=== PATIENT | male | born 1990 | race Caucasian/White ===

== ENCOUNTER 2018-10-06 21:33 | Emergency (ER) | payer MEDICAID ==
[~2018-10-06] VITALS: Ht 157.5 cm; Wt 59.0 kg
[2018-10-06 21:45] VITALS: BP 128/80
--- NOTE | 2018-10-06 21:47 | NUR ---
PT AMBULATED TO BED 12 WITH VSS.
--- NOTE | 2018-10-06 21:56 | NUR ---
PT PRESENTS TO ED WITH C/O L SHOULDER PAIN. DENIES INJURY. NO OBVIOUS INJURY OR DEFORMITY NOTED. ROM PRESENT. PT PLACED INTO BED, PENDING MD BARRIGA.
--- NOTE | 2018-10-06 22:04 | NUR ---
XRAY AT BEDSIDE.
[2018-10-06] MEDS ORDERED: KETOROLAC 60 MG/2 ML VIAL IM ONE (22:10)
[2018-10-06 23:03] VITALS: BP 119/78
== END 2018-10-06 23:03 | disposition home or self-care (01) ==
LOC: MED 21:33
DX: M25.512 Pain in left shoulder (principal)
CPT/HCPCS: 73030; 93005; 96372; 99283; J1885; Q0092

== ENCOUNTER 2019-06-17 01:02 | Emergency (ER) | payer SELFPAY ==
[~2019-06-17] VITALS: Ht 157.5 cm; Wt 63.5 kg
[2019-06-17 01:20] VITALS: BP 115/66
[2019-06-17] MEDS ORDERED: DIAZEPAM 5 MG TAB PO ONE (03:25)
[2019-06-17 03:46] VITALS: BP 123/70
== END 2019-06-17 03:46 | disposition home or self-care (01) ==
LOC: MED 01:02
DX: R20.2 Paresthesia of skin (principal)
CPT/HCPCS: 93005; 99283

== ENCOUNTER 2019-06-25 22:05 | Emergency (ER) | payer SELFPAY ==
[~2019-06-25] VITALS: Ht 157.5 cm; Wt 66.3 kg
[2019-06-25 22:10] VITALS: BP 117/79
--- NOTE | 2019-06-25 22:52 | NUR ---
29 Y/O MALE C/O 03/26 INTERMITTENT PRESSURE CHEST PAIN X 1 HOUR. STARTED WHILE LYING DOWN WATCHING TV. DENIES SOB. -NAUSEA -VOMITING +MILD DIZZINESS. RADIATES TO THE LEFT SIDE OF THE CHEST. GIRLFRIEND STATES HE WAS SHAKING EARLIER. VSS. PATIENT IS IN NO DISTRESS AT THIS TIME. ERMD MADE AWARE. PLACED ON MONITOR. PMH-- DENIES RX-- DENIES
--- NOTE | 2019-06-25 23:52 | NUR ---
Dr. Mae examining patient.
[2019-06-26] MEDS ORDERED: KETOROLAC 30 MG/ML VIAL IM ONE
[2019-06-26] MEDS ORDERED: ACETAMINOPHEN 325 MG TAB PO ONE (00:15)
[2019-06-26] MEDS ORDERED: ASPIRIN 325 MG TAB PO ONE (00:15)
--- NOTE | 2019-06-26 00:16 | NUR ---
PATIENT REFUSED TORADOL. NOTIFIED
[2019-06-26 02:35] VITALS: BP 106/70
--- NOTE | 2019-06-26 02:35 | NUR ---
DISCHARGE PAPERS GIVEN TO PT. NO C/O PAIN. 0/10 PAIN. NO CP OR OTHER DISTRESS NOTED. VSS. ISNTRUCTED TO F/U WITH PCP AND WHEN TO RETURN TO ER. PT VERBALLIZED UNDERSTANDING OF DC INSTRUCTIONS. ALL QEUSTIONS ANSWERED.
== END 2019-06-26 02:35 | disposition home or self-care (01) ==
LOC: MED 22:05
DX: R07.89 Other chest pain (principal); H53.8 Other visual disturbances
CPT/HCPCS: 71045; 93005; 99283; Q0092; J1885

== ENCOUNTER 2022-12-27 23:14 | Emergency (ER) | payer SELFPAY ==
[~2022-12-27] VITALS: Ht 149.9 cm; Wt 59.9 kg
[2022-12-27 23:20] VITALS: BP 110/76
--- NOTE | 2022-12-28 03:04 | NUR ---
Dr. Monroe examining patient.
[2022-12-28] MEDS ORDERED: ACET-10509 PO (04:15)
[2022-12-28 04:36] VITALS: BP 110/76
--- NOTE | 2022-12-28 04:37 | NUR ---
Patient discharged with v/s stable. Written and verbal after care instructions given and explained. New rx tylenol. Patient verbalized understanding. All questions addressed prior to discharge. Advised to follow up with PMD.
== END 2022-12-28 04:37 | disposition home or self-care (01) ==
LOC: MED 23:14
DX: R07.89 Other chest pain (principal); Z79.899 Other long term (current) drug therapy
CPT/HCPCS: 71045; 99283; Q0092

== ENCOUNTER 2023-11-22 09:06 | Emergency (ER) | payer SELFPAY ==
[~2023-11-22] VITALS: Ht 160 cm; Wt 66.7 kg
[~2023-11-22 09:06] MED LIST: ACET-10509 PO
[2023-11-22 09:16] VITALS: BP 112/74; PULSE 76; RESP 14; TEMP 97.2; O2SAT 98
[2023-11-22 09:25] VITALS: TEMP 98.3
[2023-11-22 09:54] LABS: BASOPHILS % (AUTO) 0.7 % (0.0-2.0); EOSINOPHILS % (AUTO) 0.7 % (0.0-4.0); HEMATOCRIT 43.4 % (36-52); HEMOGLOBIN 14.8 g/dL (12.0-18.0); LYMPHOCYTES # (AUTO) 1.4 K/uL (2.0-11.5); LYMPHOCYTES % (AUTO) 25.6 % (20.5-51.1); MEAN CORPUSCULAR HEMOGLOBIN 31 pg (27-31); MEAN CORPUSCULAR HGB CONC 34 g/dL (33-37); MEAN CORPUSCULAR VOLUME 89.9 fL (80-94); MONOCYTES # (AUTO) 0.3 K/uL (0.8-1.0); MONOCYTES % (AUTO) 6.1 % (1.7-9.3); NEUTROPHILS # (AUTO) 3.6 K/uL (1.8-7.7); NEUTROPHILS % (AUTO) 66.9 % (42.2-75.2); PLATELET COUNT (AUTO) 216 K/uL (140-450); RED BLOOD CELL COUNT(AUTO) 4.83 MIL/uL (4.20-6.10); RED CELL DISTRIBUTION WIDTH 12.9 % (11.6-13.7); WHITE BLOOD COUNT (AUTO) 5.3 K/uL (4.8-10.8)
[2023-11-22 10:10] LABS: ANION GAP 9.3 (8-16); CALCIUM 9.1 mg/dL (8.5-10.1); CARBON DIOXIDE 30.3 mmol/L (21-32); CREATININE 1.1 mg/dL (0.6-1.3); POTASSIUM 3.6 mmol/L (3.5-5.1)
[2023-11-22] MEDS: IBUPROFEN 600 MG TAB PO ONE (10:18)
[2023-11-22] MEDS ORDERED: IBUP-2213 PO (10:56)
[2023-11-22 11:10] VITALS: BP 107/69; PULSE 67; RESP 18; O2SAT 96
== END 2023-11-22 11:10 | disposition home or self-care (01) ==
LOC: MED 09:06
DX: R07.89 Other chest pain (principal); Z79.899 Other long term (current) drug therapy
CPT/HCPCS: 36415; 71045; 80048; 84484; 85025; 93005; 99285

== ENCOUNTER 2024-05-15 11:00 | Emergency (ER) | payer SELFPAY ==
[~2024-05-15] VITALS: Ht 157.5 cm; Wt 65.8 kg
[~2024-05-15 11:00] MED LIST changes: -ACET-10509 PO; +ACET500T99 PO; +IBUP-2213 PO
[2024-05-15 11:22] VITALS: BP 113/65; PULSE 64; RESP 17; TEMP 98.2; O2SAT 99
[2024-05-15 11:55] VITALS: O2SAT 99
[2024-05-15 12:23] LABS: BASOPHILS % (AUTO) 0.9 % (0.0-2.0); EOSINOPHILS % (AUTO) 0.8 % (0.0-4.0); HEMATOCRIT 40.3 % (36-52); HEMOGLOBIN 13.6 g/dL (12.0-18.0); LYMPHOCYTES # (AUTO) 1.4 K/uL (2.0-11.5); LYMPHOCYTES % (AUTO) 28.2 % (20.5-51.1); MEAN CORPUSCULAR HEMOGLOBIN 31 pg (27-31); MEAN CORPUSCULAR HGB CONC 34 g/dL (33-37); MEAN CORPUSCULAR VOLUME 90.6 fL (80-94); MONOCYTES # (AUTO) 0.4 K/uL (0.8-1.0); MONOCYTES % (AUTO) 8.4 % (1.7-9.3); NEUTROPHILS % (AUTO) 61.7 % (42.2-75.2); PLATELET COUNT (AUTO) 209 K/uL (140-450); RED BLOOD CELL COUNT(AUTO) 4.45 MIL/uL (4.20-6.10); RED CELL DISTRIBUTION WIDTH 13.9 % (11.6-13.7); WHITE BLOOD COUNT (AUTO) 4.9 K/uL (4.8-10.8)
[2024-05-15 12:35] LABS: ANION GAP 9.8 (8-16); CALCIUM 9.1 mg/dL (8.5-10.1); CARBON DIOXIDE 28.5 mmol/L (21-32); CREATININE 1.2 mg/dL (0.6-1.3); POTASSIUM 4.3 mmol/L (3.5-5.1)
[2024-05-15 12:39] LABS: INR 0.99 (0.8-1.2); PARTIAL THROMBOPLASTIN TIME 25.9 secs (22-35.6); PROTHROMBIN TIME 10.4 secs (10.8-13.4)
== END 2024-05-15 14:27 | disposition home or self-care (01) ==
LOC: MED 11:00
DX: R07.89 Other chest pain (principal); F41.9 Anxiety disorder, unspecified; Z79.899 Other long term (current) drug therapy
CPT/HCPCS: 36415; 71045; 80048; 83880; 84484; 85025; 85610; 85730; 93005; 99285

== ENCOUNTER 2024-07-02 20:35 | Emergency (ER) | payer SELFPAY ==
[~2024-07-02] VITALS: Ht 154.9 cm; Wt 65.3 kg
[2024-07-02 20:51] VITALS: BP 109/76; PULSE 82; RESP 18; TEMP 98; O2SAT 99
[2024-07-02] MEDS ORDERED: NAPR-1704 PO (21:39)
== END 2024-07-02 21:50 | disposition home or self-care (01) ==
LOC: MED 20:35
DX: R07.89 Other chest pain (principal); M79.632 Pain in left forearm; M79.622 Pain in left upper arm; Z79.899 Other long term (current) drug therapy
CPT/HCPCS: 93005; 99284